=== PATIENT | female | born 1995 | race Caucasian/White ===

== ENCOUNTER 2017-06-09 04:47 | Emergency (ER) | payer OTHER, SELFPAY ==
[2017-06-09 04:51] VITALS: BP 116/72; PULSE 107; RESP 16; TEMP 36.6; O2SAT 100; BMI 26.1
--- NOTE | 2017-06-09 04:57 | RAD_ITS ---
STUDY: X-RAY CHEST REASON FOR EXAM: Female, 22 years old. Chest pain TECHNIQUE: Frontal and lateral views of the chest. COMPARISON: None. FINDINGS: The lungs are clear and expanded. There is no demonstrated pleural abnormality. Normal size heart. Normal mediastinum and kimberly. Normal visualized pulmonary arteries. Normal visualized aortic arch and descending thoracic aorta. There is a levoscoliosis of the thoracic spine. There is decreased height of the right side of vertebral body of T10 suggesting compression fracture of undetermined age. Normal visualized ribs, clavicles, and shoulders. There is no demonstrated abnormality of the visualized soft tissue structures of the upper abdomen. RAD/Chest PA and Lateral IMPRESSION: No acute chest disease. There is decreased height of the right side of vertebral body of T10 suggesting compression fracture of undetermined age. Electronically Signed: Erich Frost MD at 6:46 EDT Tel , Service support ,
--- NOTE | 2017-06-09 04:57 | EKG12_ITS ---
Test Reason : CP Blood Pressure : / mmHG Vent. Rate : 108 BPM Atrial Rate : 108 BPM P-R Int : 124 ms QRS Dur : 084 ms QT Int : 336 ms P-R-T Axes : 064 035 059 degrees QTc Int : 450 ms Sinus tachycardia Otherwise normal ECG Confirmed by TRUE PALM, NEGRITA ([id number]), sports editor KIERSTEN THACKER ([id number]) on 06/11/2017 3:10:42 PM Referred By: HILDA Confirmed By:NEGRITA BISWAS MD
--- NOTE | 2017-06-09 04:59 | ED.VISSUMM ---
- ER Visit Summary Date of Service: 06/09/17 Chief Complaint: Aching chest pain History of Present Illness: The patient is a 22 F currently at 22 weeks. Due date is 10/10/2017. Patient had no problems with the . She has never had a DVT or PE. She denies any leg pain or swelling. She has had no recent travel, surgery or mobilization. She denies any hemoptysis. She denies any shortness of breath. Patient states that Saturday at 2:45 AM she had chest aching discomfort that got worse tonight. No falls or trauma. She denies shortness of breath or abdominal pain. No vaginal bleeding. Prior episode that was secondary to anxiety. There is no pleuritic component of the pain. He is not change with movement or breathing. It does not radiate to her jaw. Physical Examination: Well appearing young female. Vital signs are stable and afebrile. Her pulse ox is 100% on room air no signs of hypoxia. Her blood pressure is 116/72. HEENT exam is unremarkable. Neck nontender no lymphadenopathy. Lungs clear to auscultation bilaterally. Heart regular rhythm rate about 107 no murmur. Chest wall nontender. No ecchymosis or bruising. No subcu air. No signs of trauma. Abdomen soft nontender normal bowel sounds no peritoneal signs. Gravid uterus. Nontender. Moving all 4 extremities. Neurovascular intact. Calves are nontender without edema or cords. Equal symmetrical radial pulses. 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 Back exam is nontender. Neurologically she is awake and alert without focal motor deficits. Test Results: EKG is a sinus rhythm rate of 108 with no acute signs of NH or ischemia. No signs of a PE. Chest x-ray two-view with the shielded abdomen shows no acute abnormality. Normal cardiac silhouette and mediastinum. No pneumothorax. Normal aortic knob. Emergency Department Course and Treatment: Repeat exam patient is doing well at 05 23. Ambulate in the hallway as long as she does not desat occurred with her being discharged. Clinically this does not sound to be a pulmonary embolus. There is no pleuritic nature. She is not short of breath. Her pulse ox is 100% on room air. Her EKG is unremarkable as is her chest x-ray there is no signs of dissection. Clinically this does not sound to be pericarditis either. Treatment Plan: Tylenol for pain. 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 It may contain incorrect words, spelling, and punctuation that were not noted in review of the chart prior to signing ED Disposition - Plan for ED Patient: Chief Complaint: Chest Pain Referrals: Butch Crowley MD [Primary Care Provider] -
--- NOTE | 2017-06-09 05:06 | ED.DCSUM_ITS ---
- ER Visit Summary Date of Service: 06/09/17 Chief Complaint: Aching chest pain History of Present Illness: The patient is a 22 F currently at 22 weeks. Due date is 10/10/2017. Patient had no problems with the . She has never had a DVT or PE. She denies any leg pain or swelling. She has had no recent travel, surgery or mobilization. She denies any hemoptysis. She denies any shortness of breath. Patient states that Saturday at 2:45 AM she had chest aching discomfort that got worse tonight. No falls or trauma. She denies shortness of breath or abdominal pain. No vaginal bleeding. Prior episode that was secondary to anxiety. There is no pleuritic component of the pain. He is not change with movement or breathing. It does not radiate to her jaw. Physical Examination: Well appearing young female. Vital signs are stable and afebrile. Her pulse ox is 100% on room air no signs of hypoxia. Her blood pressure is 116/72. HEENT exam is unremarkable. Neck nontender no lymphadenopathy. Lungs clear to auscultation bilaterally. Heart regular rhythm rate about 107 no murmur. Chest wall nontender. No ecchymosis or bruising. No subcu air. No signs of trauma. Abdomen soft nontender normal bowel sounds no peritoneal signs. Gravid uterus. Nontender. Moving all 4 extremities. Neurovascular intact. Calves are nontender without edema or cords. Equal symmetrical radial pulses. 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 Back exam is nontender. Neurologically she is awake and alert without focal motor deficits. Test Results: EKG is a sinus rhythm rate of 108 with no acute signs of MD or ischemia. No signs of a PE. Chest x-ray two-view with the shielded abdomen shows no acute abnormality. Normal cardiac silhouette and mediastinum. No pneumothorax. Normal aortic knob. Emergency Department Course and Treatment: Repeat exam patient is doing well at 05 23. Ambulate in the hallway as long as she does not desat occurred with her being discharged. Clinically this does not sound to be a pulmonary embolus. There is no pleuritic nature. She is not short of breath. Her pulse ox is 100 % on room air. Her EKG is unremarkable as is her chest x-ray there is no signs of dissection. Clinically this does not sound to be pericarditis either. Treatment Plan: Tylenol for pain. 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 It may contain incorrect words, spelling, and punctuation that were not noted in review of the chart prior to signing ED Disposition - Plan for ED Patient: Chief Complaint: Chest Pain Referrals: Butch Crowley MD [Primary Care Provider] -
--- NOTE | 2017-06-09 05:25 | ED.DEP ---
ED Disposition - Plan for ED Patient: Disposition: Home or Assisted Living Chief Complaint: Chest Pain Instructions: ED Chest Pain Atypical Unkn Cause Referrals: Evon Arreola [STAFF PHYSICIAN] - 3-5 Days if not improving Additional Instructions: Tylenol for pain. Call and follow-up with your ROPEWALK ROPE MAKER physician. Return if increasing pain, shortness of breath or coughing up blood.
[2017-06-09 05:39] VITALS: O2SAT 99
[2017-06-09 05:41] VITALS: RESP 14
== END 2017-06-09 05:41 | disposition home or self-care (01) ==
PROVIDERS: Emergency Provider Emergency Medicine; Family Provider Pediatrics; PCP Pediatrics
DX: O26.892 Other specified pregnancy related conditions, second trimester (principal); R07.9 Chest pain, unspecified; Z3A.22 22 weeks gestation of pregnancy
CPT/HCPCS: 71046; 93005; 99282

== ENCOUNTER 2017-08-20 19:45 | Outpatient (CLI) | payer OTHER, SELFPAY ==
[2017-08-20 20:16] VITALS: BMI 27.1
[2017-08-20 20:59] LABS: ROM Internal Control Test YES-OK TO RESULT pt. (Internal QC); ROM Patient Test Negative (Negative)
[2017-08-20 21:01] LABS: Fetal Fibronectin Negative
--- NOTE | 2017-08-20 21:25 | OB.TRI.NOTE ---
History of Present Illness Date of Service: 08/20/17 Was patient seen by the physician?: Yes Reason For Visit: CRAMPING AND BLEEDING Home Medications Medication Instructions Recorded Vit Calc,Iron,Folic 1 each PO DAILY 06/09/17 [ Vitamins] Magnesium 200 mg PO DAILY 08/20/17 Allergies latex Allergy (Verified 06/09/17 04:51) Rash NST - FHR Rate Baby A Baseline: 125 Variability:: Moderate Accelerations:: 15 x 15 Decelerations:: None NST Reactive:: Yes Uterine Activity:: occ ctx Impression/Plan Reactive NST for threatened PTL ROM & FFN negative
== END 2017-08-20 21:45 | disposition home or self-care (01) ==
LOC: WPOUT 20:14 → WP 20:15
PROVIDERS: Family Provider Pediatrics; PCP Pediatrics; Visit Provider Obstetrics & Gynecology
DX: O60.00 Preterm labor without delivery, unspecified trimester (principal); Z3A.00 Weeks of gestation of pregnancy not specified
CPT/HCPCS: 59025; 59050; 82731; 84112; 99218; G0378

== ENCOUNTER 2017-09-13 12:05 | Outpatient (CLI) | payer OTHER, SELFPAY ==
[2017-09-13 12:35] VITALS: BMI 27.6
[2017-09-13 13:02] LABS: ROM Internal Control Test YES-OK TO RESULT pt. (Internal QC); ROM Patient Test Negative (Negative)
--- NOTE | 2017-09-13 18:55 | OB.TRI.NOTE ---
History of Present Illness Date of Service: 09/13/17 Was patient seen by the physician?: No Reason For Visit: R/O ROM, Decreased FM Date of Service: 09/13/17 Final TOÑO: 10/10/17 Gestational age: 36 Weeks and 1 Days History of Present Illness: Patient reports increased wetness after using bathroom. Patient concerned that bag of alvarado may have broken. Patient also reports a change in the baby's movements. Patient usually feels constant movement and big extensions; currently patient is only feeling flutters. Allergies latex Allergy (Verified 06/09/17 04:51) Rash Physical Exam Vitals: See nursing note for vital signs and assessment - patient was normotensive, afebrile. Physical assessment by nursing staff unremarkable. ROM plus negative. NST - FHR Rate Baby A Baseline: 140 Variability:: Moderate Accelerations:: 15 x 15 Decelerations:: None NST Reactive:: Yes, Appropriate for gestational age FHR Category:: Category I Uterine Activity:: Uterine irritability noted on tocometer, not palpable or noticeable to patient. Impression/Plan 22 y/o @ 36.1wks, Category I FHT, PTL and PPROM - ruled out P: 1) Discharge patient to home 2) [facility] teaching and PTL precautions reviewed 3) Patient to keep pending appt. on 09/17/17 for mady HIDALGO
--- NOTE | 2017-09-13 19:00 | OB.TRI.HP_ITS ---
History of Present Illness Date of Service: 09/13/17 Was patient seen by the physician?: No Reason For Visit: R/O ROM, Decreased FM Date of Service: 09/13/17 Final TOÑO: 10/10/17 Gestational age: 36 Weeks and 1 Days History of Present Illness: Patient reports increased wetness after using bathroom. Patient concerned that bag of alvarado may have broken. Patient also reports a change in the baby's movements. Patient usually feels constant movement and big extensions; currently patient is only feeling flutters. Allergies latex Allergy (Verified 06/09/17 04:51) Rash Physical Exam Vitals: See nursing note for vital signs and assessment - patient was normotensive, afebrile. Physical assessment by nursing staff unremarkable. ROM plus negative. NST - FHR Rate Baby A Baseline: 140 Variability:: Moderate Accelerations:: 15 x 15 Decelerations:: None NST Reactive:: Yes, Appropriate for gestational age FHR Category:: Category I Uterine Activity:: Uterine irritability noted on tocometer, not palpable or noticeable to patient. Impression/Plan 22 y/o @ 36.1wks, Category I FHT, PTL and PPROM - ruled out P: 1) Discharge patient to home 2) [facility] teaching and PTL precautions reviewed 3) Patient to keep pending appt. on 09/17/17 for mady HIDALGO
== END 2017-09-13 14:10 | disposition home or self-care (01) ==
LOC: WPOUT 12:11 → WP 12:11
PROVIDERS: Family Provider Pediatrics; PCP Pediatrics; Visit Provider Advanced Practice Midwife
DX: Z34.03 Encounter for supervision of normal first pregnancy, third trimester (principal); Z91.040 Latex allergy status
CPT/HCPCS: 59025; 59050; 84112; 99218; G0378

== ENCOUNTER 2017-10-06 05:54 | Inpatient (IN) | payer OTHER, SELFPAY ==
[2017-10-06 05:26] VITALS: BMI 28.5
[2017-10-06 05:49] LABS: ROM Internal Control Test YES-OK TO RESULT pt. (Internal QC)
[2017-10-06 05:50] LABS: ROM Patient Test POSITIVE (Negative)
[2017-10-06 07:27] LABS: Hemoglobin 11.9 g/dl (12.0-15.0); Mean Corp Hgb Conc 33.1 g/gl (32-36); Mean Corpuscular Hgb 29.6 pg (27.0-32.0); Mean Corpuscular Volume 89.6 fL (81-99); Mean Platelet Vol. 9.8 fl (6.2-12.0); Platelet Count 206 K/mm3 (150-450); RBC Distribution Width CV 13.3 % (11.6-14.6); RBC Distribution Width SD 43.2 fl (35.1-43.9); Red Blood Count 4.02 M/mm3 (4.2-5.4); White Blood Count 8.3 K/mm3 (4.4-11.0)
[2017-10-06 07:29] LABS: Scan Indicated on CBC? Y/N NO
[2017-10-06] MEDS: Oxytocin 30 units/NS 500 ml 30 UNITS/500 ML IV.SOLN IV (08:05)
[2017-10-06] MEDS: Lactated Ringers 1,000 ML 50 ML IV ×4 (08:25→19:41)
--- NOTE | 2017-10-06 11:15 | PCM.HP.OB ---
History Date of Admission: 10/06/17 Final TOÑO: 10/10/17 Final TOÑO Source: US <20 weeks Gestational age: 39 Weeks and 3 Days History of this : This is a 22 year-old, 1 para 0 at 39-3/7 weeks gestation with EDC of 10/10/2017 by first trimester ultrasound alone who presents complaining of spontaneous rupture of membranes. She awoke this morning approximately 3:15 AM and noticed spontaneous rupture of membranes. She had no regular contractions at that time. No gross vaginal bleeding. Her has been uncomplicated to date and she arrived in labor and delivery where she was found to have gross spontaneous rupture of membranes. Allergies latex Allergy (Verified 06/09/17 04:51) Rash Home Medications: Home Medications Vit Calc,Iron,Folic [ Vitamins] 1 each PO DAILY 06/09/17 Magnesium 200 mg PO DAILY 08/20/17 Smoking Status: Never smoker Alcohol: None Number of Fetus(es): 1 Heart Tracing: Normal baseline, moderate variability, spontaneous accelerations and no significant decelerations. Category 1. TOCO Analysis: Irregular contractions History Past Pregnancies: Past Pregnancies Delivery Date Name GA/Weeks Outcome Route Weight Infant Gender Labor Length Anesthesia Delivery Location Provider FOB Expected Delivery Method: Spontaneous Vaginal Review of Systems Constitutional: Denies: Chills, Fever, Night Sweats Cardiovascular: Denies: Chest Pain Respiratory: Denies: Cough, Shortness of Breath Skin: Reports: Rash - Mild rash over the last few weeks of that is raised, sparse, and on her abdomen slightly pruritic Physical Exam General: Alert, Cooperative, No apparent distress Cardiovascular: Regular rate Lungs: Normal air movement Abdomen: Soft, Non-Distended, Gravid, Appropriate for Gestational Age Extremities:: Other - 1+ edema Assessment/Plan This is a 22 year-old, 1 para 0 at 39-3/7 weeks gestation with spontaneous rupture of membranes before onset of labor. Premature rupture of membranes at term. Estimated weight is less than 4500 g and pelvis is clinically adequate to expect vaginal delivery. Will induce labor with Pitocin. May have epidural, nitrous oxide, or Nubain as needed for pain control
[2017-10-06] MEDS: Oxytocin 30 units/NS 500 ml 30 UNITS/500 ML IV.SOLN 334 UNITS IV (19:14)
[2017-10-06] MEDS: Methylergonovine 0.2 MG/ML Ampul IM (19:30)
[2017-10-06] MEDS: Oxytocin 30 units/NS 500 ml 30 UNITS/500 ML IV.SOLN 167 UNITS IV (19:45)
--- NOTE | 2017-10-06 20:06 | PCM.OB.VAG ---
Vaginal Delivery Maternal Presentation: Spontaneous Rupture of Membranes Method of Induction: Pitocin Amniotic Membrane Rupture Type: Spontaneous at home Amniotic Fluid Description: Clear Final TOÑO: 10/10/17 Gestational age: 39 Weeks and 3 Days Date of Procedure: 10/06/17 Pre-Operative Diagnosis: SROM Post-Operative Diagnosis: SROM Surgery/ Procedure Performed: Spontaneous Vaginal Delivery Type of Anesthesia: Epidural Description of Procedure: Called to room when patient c/c/+3. She was prepped & draped. She pushed to deliver head. The shoulders &body easily followed. placed on maternal abdomen. 3vc clamped & cut in delayed fashion. Placenta delivered with gentle traction. Good uterine tone obtained - see medications. Presentation: JAN Placental Delivery Description: Expressed Placenta Disposition: [facility] Cord Vessel Description: 3 Vessels Cord Entanglement: None Estimated Blood Loss: 500ml Infant A gender: Female (1 minute): 8 (5 minute): 9 Episiotomy Description: None Laceration: 2nd degree - perineal - repaired with 3-0 vicryl Medications given after delivery: IV Pitocin, IM Methergin - and rectal cytotec
[2017-10-06] MEDS: miSOPROStol 200 MCG Tablet 1000 MCG RECTAL (21:18)
[2017-10-06] MEDS: Acetaminophen 500 MG Tablet 1000 MG PO (23:57)
[2017-10-07] VITALS: BP 121/77; PULSE 88; RESP 16; TEMP 36.8
--- NOTE | 2017-10-07 02:00 | NURSING ---
Taking over pt care at this time.
[2017-10-07 05:00] VITALS: BP 108/67; PULSE 99; RESP 18; TEMP 36.6; O2SAT 97
[2017-10-07 05:40] LABS: Hematocrit 31.5 % (37-47); Hemoglobin 10.4 g/dl (12.0-15.0); Mean Corpuscular Volume 90.8 fL (81-99); Mean Platelet Vol. 9.5 fl (6.2-12.0); Platelet Count 217 K/mm3 (150-450); RBC Distribution Width CV 13.2 % (11.6-14.6); RBC Distribution Width SD 42.1 fl (35.1-43.9); Red Blood Count 3.47 M/mm3 (4.2-5.4); White Blood Count 16.2 K/mm3 (4.4-11.0)
[2017-10-07 05:43] LABS: Scan Indicated on CBC? Y/N NO
--- NOTE | 2017-10-07 07:00 | NURSING ---
Pt missed hat with second void. Bladder feels fully emptied per pt report.
--- NOTE | 2017-10-07 07:00 | NURSING ---
Patients left foot remains numb, able to pivot to wheelchair with x1 assist to get to bathroom. Able to wiggle toes and lift lt leg. Oncoming RN made aware of numbness. Pt instructed to call when getting up.
[2017-10-07 08:00] VITALS: BP 115/74; PULSE 102; RESP 20; TEMP 36.8
[2017-10-07] MEDS: Acetaminophen 500 MG Tablet 1000 MG PO ×2 (08:01→19:41)
[2017-10-07] MEDS: Senna/Docusate Sodium 1 Tablet PO (08:01)
--- NOTE | 2017-10-07 09:02 | PCM.PN.OB ---
Subjective: Doing well per patient and nursing staff. Taking PO without difficulty. Voiding without difficulty. Left leg with numbness and tingling from midcalf down to foot, having difficulty applying weight during ambulation. Needing assistance with ambulation. Denies headache, visual changes, chest pain, increased vaginal bleeding or clots. , getting assistance from . Planning D/C home tomorrow. - Physical Exam General: Alert, Oriented x3, Cooperative Lungs: Clear to auscultation, Normal air movement, No rhonchi, No wheeze Cardiovascular: Regular rate, Regular Rhythm, No murmurs Abdomen: Bowel Sounds Present, Soft, Non Tender, - - Fundus firm 2 below U Extremities: No edema, No Calf Tenderness, - - Left leg with decreased strength, +4/5. Able to move left foot and leg but with decreased range of motion. Neurological: Deep Tendon Reflexes 2+/4 and Symmetrical, - - No clonus Psych/Mental Status: Normal Affect, Appropriate Vital Signs Temp Pulse Resp BP Pulse Ox 97.8 F 99 18 108/67 97 10/07/17 05:00 10/07/17 05:00 10/07/17 05:00 10/07/17 05:00 10/07/17 05:00 Oxygen Delivery Method Room Air Weight: 177 lb Body Mass Index (BMI) 28.5 Intake and Output for Last 24 Hours 10/05/17 10/06/17 10/07/17 23:59 23:59 23:59 Intake Total 273 / 273 Output Total 800 / 800 400 / 400 Balance -527 / -527 -400 / -400 Laboratory Tests Past 24 Hrs 10/07/17 05:20 WBC 16.2 H RBC 3.47 L Hgb 10.4 L Hct 31.5 L MCV 90.8 MCH 30.0 MCHC 33.0 RDW 13.2 RDW Differential 42.1 Plt Count 217 MPV 9.5 Medical Necessity - Tobacco Use Smoking Status: Never smoker Assessment/Plan A: PPD #1 P: 1) Routine care 2) Consult anesthesia and PT for left lower extremity weakness/numbness. Reviewed with patient probable transient but will consult for evaluation. 3) Planning D/C home tomorrow.
--- NOTE | 2017-10-07 09:12 | PN.OBGYN_ITS ---
Subjective: Doing well per patient and nursing staff. Taking PO without difficulty. Voiding without difficulty. Left leg with numbness and tingling from midcalf down to foot, having difficulty applying weight during ambulation. Needing assistance with ambulation. Denies headache, visual changes, chest pain, increased vaginal bleeding or clots. , getting assistance from . Planning D/ C home tomorrow. - Physical Exam General: Alert, Oriented x3, Cooperative Lungs: Clear to auscultation, Normal air movement, No rhonchi, No wheeze Cardiovascular: Regular rate, Regular Rhythm, No murmurs Abdomen: Bowel Sounds Present, Soft, Non Tender, - - Fundus firm 2 below U Extremities: No edema, No Calf Tenderness, - - Left leg with decreased strength , +4/5. Able to move left foot and leg but with decreased range of motion. Neurological: Deep Tendon Reflexes 2+/4 and Symmetrical, - - No clonus Psych/Mental Status: Normal Affect, Appropriate Vital Signs Temp Pulse Resp BP Pulse Ox 97.8 F 99 18 108/67 97 10/07/17 05:00 10/07/17 05:00 10/07/17 05:00 10/07/17 05:00 10/07/17 05:00 Oxygen Delivery Method Room Air Weight: 177 lb Body Mass Index (BMI) 28.5 Intake and Output for Last 24 Hours 10/05/17 10/06/17 10/07/17 23:59 23:59 23:59 Intake Total 273 / 273 Output Total 800 / 800 400 / 400 Balance -527 / -527 -400 / -400 Laboratory Tests Past 24 Hrs 10/07/17 05:20 WBC 16.2 H RBC 3.47 L Hgb 10.4 L Hct 31.5 L MCV 90.8 MCH 30.0 MCHC 33.0 RDW 13.2 RDW Differential 42.1 Plt Count 217 MPV 9.5 Medical Necessity - Tobacco Use Smoking Status: Never smoker Assessment/Plan A: PPD #1 P: 1) Routine care 2) Consult anesthesia and PT for left lower extremity weakness/numbness. Reviewed with patient probable transient but will consult for evaluation. 3) Planning D/C home tomorrow.
[2017-10-07 13:00] VITALS: BP 108/70; PULSE 111; RESP 20; TEMP 36.8
[2017-10-07 16:00] VITALS: BP 111/75; PULSE 119; RESP 16; TEMP 36.6
--- NOTE | 2017-10-07 16:00 | NURSING ---
1600 -Evaluated by physical therapy. numbness left mid-calf and foot. Able to flex toes. Able to walk with one assist. States numbness lessens when walking but increases when she sits again. PT plans to re-evaluate in the morning if Janki remains an inpatient.
--- NOTE | 2017-10-07 16:37 | NURSING ---
Dr. Posadas visited and PT consult ordered at 1300.
[2017-10-07 19:40] VITALS: BP 105/72; PULSE 120; RESP 19; TEMP 36.8
[2017-10-08 01:35] VITALS: BP 119/71; PULSE 102; RESP 18; TEMP 37
--- NOTE | 2017-10-08 07:49 | PCM.PN.OB ---
Subjective: Doing well per patient and nursing staff. Ambulating better this am, able to get out of bed to bathroom without difficulty. Has feeling and strength back in left leg. Evaluated by PT yesterday. Voiding and passing flatus. without difficulty. Planning D/C home today. - Physical Exam General: Alert, Oriented x3, Cooperative HEENT: Atraumatic, Normocephalic Lungs: Clear to auscultation, Normal air movement, No rhonchi, No wheeze Cardiovascular: Regular rate, Regular Rhythm, No murmurs Abdomen: Bowel Sounds Present, Soft, Non Tender, - - Fundus firm 2 below U Extremities: No edema Neurological: Deep Tendon Reflexes 2+/4 and Symmetrical Psych/Mental Status: Normal Affect, Appropriate Vital Signs Temp Pulse Resp BP Pulse Ox 98.6 F 102 H 18 119/71 97 10/08/17 01:35 10/08/17 01:35 10/08/17 01:35 10/08/17 01:35 10/07/17 05:00 Oxygen Delivery Method Room Air Weight: 177 lb Body Mass Index (BMI) 28.5 Intake and Output for Last 24 Hours 10/06/17 10/07/17 10/08/17 23:59 23:59 23:59 Intake Total 273 / 273 Output Total 800 / 800 400 / 400 Balance -527 / -527 -400 / -400 Medical Necessity - Tobacco Use Smoking Status: Never smoker Assessment/Plan A: PPD #2 P: 1) Discharge and instructions given. D/C home today 2) Follow up in 6 weeks.
--- NOTE | 2017-10-08 07:57 | DCINST_ITS ---
Discharge Diet: No Restrictions Discharge Activity: Return to Normal Activity, May not drive while taking narcotic pain medications., May Shower May resume sexual activity in: 4-6 weeks Weight Bearing Status: Weight bearing as tolerated Call your doctor if your incision/area has: Continuous Slow Oozing, Sudden Increased Bleeding, Increased Pain/ Swelling, Increased Redness, Foul Smelling Discharge Call your doctor if you observe: Fever of 101 or Higher, Numbness or Tingling, Inability to urinate, Inability to have a bowel movement, Using more than one pad per hour, Shortness of breath, Increased palpitations (irregular heartbeat) , Calf discomfort, Uncontrolled pain Additional Instructions: If you experience any of the following, contact your healthcare provider. * Bleeding that soaks a pad every hour for 2 hours * Fever 100.4 or higher * Unrelieved incision or abdominal pain * Swelling, redness, discharge or bleeding from your incision or episiotomy site * Your incision begins to separate * Problems urinating (including inability to urinate or burning while urinating) . * Visual changes * Severe headache * Flu-like symptoms * Pain or redness in one of both of your breasts * Pain, warmth, tenderness or swelling in your legs, especially the calf area * Frequent nausea and vomiting * Symptoms of depression or anxiety If you experience any of the following, call 911 or go to the nearest Emergency Room. * Chest pain * Problems breathing * Seizure activity * Partial or complete paralysis of a body part, slurred speech, weakness or drooping of the face, or a sudden inability to walk or hold your balance Allergies/Adverse Reactions: Allergies latex Allergy (Verified 06/09/17 04:51) Rash Medications to take at Discharge Vit Calc,Iron,Folic [ Vitamins] 1 each PO DAILY 06/09/17 Acetaminophen [Tylenol] 1,000 mg PO Q8H PRN PRN tablet 10/08/17 Please Follow Up With: Elizabeth Clark CNM When: Call to make an appointment with your doctor in 6 weeks. If you had elevated Blood Pressure or 4th degree laceration you will need to be seen in 2 weeks. Primary Care Physician: Butch Crowley MD [Primary Care Provider] - Test Results: Test results from this visit will be discussed in further detail at your follow- up appointment, if applicable.
[2017-10-08 09:15] VITALS: BP 111/72; PULSE 98; RESP 16; TEMP 36.3
[2017-10-08] MEDS: Senna/Docusate Sodium 1 Tablet PO (11:24)
[2017-10-08 14:30] VITALS: BP 107/67; PULSE 103; RESP 16; TEMP 36.8; O2SAT 98
[2017-10-08 14:32] VITALS: BP 107/67; PULSE 103; RESP 16; TEMP 36.8; O2SAT 98
== END 2017-10-08 14:45 | disposition home or self-care (01) | DRG 775 ==
LOC: WPOUT 05:55
PROVIDERS: Obstetrics & Gynecology; Admitting Provider Obstetrics & Gynecology; Family Provider Pediatrics; PCP Pediatrics; Visit Provider Obstetrics & Gynecology
DX: O70.1 Second degree perineal laceration during delivery (principal); Z37.0 Single live birth; O42.92 Full-term premature rupture of membranes, unspecified as to length of time between rupture and onset of labor; Z3A.39 39 weeks gestation of pregnancy; Z91.040 Latex allergy status; M41.9 Scoliosis, unspecified
CPT/HCPCS: 59025; 59050; 84112; 85027; 86850; 86900; 97162; 99218; J7120; G0378

== ENCOUNTER 2017-10-09 16:05 | Outpatient (CLI) | payer OTHER, SELFPAY | END 2017-10-09 17:30 | disposition home or self-care (01) | LOC: WPOUT 16:07 → WP 16:08 | PROVIDERS: Family Provider Pediatrics; PCP Pediatrics; Visit Provider Obstetrics & Gynecology | DX: Z39.1 Encounter for care and examination of lactating mother (principal) | CPT/HCPCS: 96152 ==

== ENCOUNTER 2019-01-08 17:42 | Outpatient (CLI) | payer BC, SELFPAY ==
[2019-01-08 17:51] VITALS: BMI 25.3
[2019-01-08 18:33] LABS: ROM Internal Control Test YES-OK TO RESULT pt. (Internal QC); ROM Patient Test Negative (Negative); Record Kit Lot#, ROM+ J8255
--- NOTE | 2019-01-10 10:29 | OB.TRI.NOTE ---
History of Present Illness Date of Service: 01/08/19 Was patient seen by the physician?: No Reason For Visit: R/O RUPTURE Date of Service: 01/08/19 Final TOÑO: 04/29/19 Final TOÑO Source: US <20 weeks Gestational age: 24 Weeks and 3 Days Allergies latex Allergy (Verified 01/08/19 17:54) Rash Laboratory Studies: Laboratory Tests 01/08/19 Range/Units 17:45 Vag Amniotic Fld Detect Negative (Negative) NST - FHR Rate Baby A Baseline: 130 Variability:: Moderate Accelerations:: 10 x 10 Decelerations:: None NST Reactive:: Appropriate for gestational age, Non-Reactive FHR Category:: Category I Uterine Activity:: quiet Impression/Plan 23-year-old multigravida female at 24-1/7 weeks presents complaining of possible rupture membranes. No evidence of rupture membranes. She was discharged home with routine follow-up in the office, or return as needed.
== END 2019-01-08 18:40 | disposition home or self-care (01) ==
LOC: WPOUT 17:43 → WP 17:44
PROVIDERS: Family Provider Pediatrics; PCP Pediatrics; Referring Provider Obstetrics & Gynecology; Visit Provider Obstetrics & Gynecology
DX: Z34.82 Encounter for supervision of other normal pregnancy, second trimester (principal); Z3A.24 24 weeks gestation of pregnancy; Z91.040 Latex allergy status
CPT/HCPCS: 59025; 59050; 84112; 99218; G0378

== ENCOUNTER 2019-03-02 18:51 | Outpatient (CLI) | payer BC, SELFPAY ==
[2019-03-02 18:50] VITALS: BP 99/62; PULSE 110; RESP 18; TEMP 36.9; O2SAT 99; BMI 27.2
[2019-03-02] MEDS: 0.9% Normal Saline 1,000 ML 1000 ML IV (19:17)
[2019-03-02 19:22] LABS: Absolute Lymphocyte Count 1.03 X10^3/uL (0.83-4.51); Absolute Neutrophil Count 9.4 X10^3/uL (2.0-7.7); Basophil# 0.02 X10^3/uL; Basophil% 0.2 % (0-1); Eosinophil# 0.01 X10^3/uL; Eosinophils% 0.1 % (0-5); Hematocrit 35.9 % (37-47); Hemoglobin 11.8 g/dL (12.0-15.0); Lymphocyte # 1.03 X10^3/ul (4.0); Lymphocyte % 9.3 % (19-41); Mean Corp Hgb Conc 32.9 g/dL (32-36); Mean Corpuscular Hgb 29.9 pg (27.0-32.0); Mean Corpuscular Volume 91.1 fL (81-99); Mean Platelet Vol. 9.1 fl (6.2-12.0); Monocyte# 0.59 X10^3/uL; Monocyte% 5.3 % (0-10); NRBC Flagged by Analyzer 0 % (0-5); Neutrophil # 9.36 X10^3/uL (2.7-7.7); Neutrophil % 84.7 % (47-70); Platelet Count 243 K/mm3 (150-450); RBC Distribution Width CV 12.6 % (11.6-14.6); RBC Distribution Width SD 41.6 fl (35.1-43.9); Red Blood Count 3.94 M/mm3 (4.2-5.4); White Blood Count 11.1 K/mm3 (4.4-11.0)
[2019-03-02 19:37] LABS: Bacteria 0 SEEN /hpf (None Seen); Mucous, Urine 0 SEEN /hpf (<or=2+); Red Blood Cells-Urine 0 SEEN /hpf (0-5); White Blood Cells 0 SEEN /hpf (0-5)
[2019-03-02 19:54] LABS: Anion Gap 7 (5-15); BUN 8 mg/dL (7-18); BUN/Creat Ratio 16.5 RATIO (10-20); Calcium,Total 8.4 mg/dL (8.5-10.1); Chloride 107 mmol/L (98-107); Creatinine, Serum 0.48 mg/dL (0.55-1.02); EST Glomerular Filtration Rate 165 mL/min (>60); Est Glom Filt Rate - Afr Amer 200 mL/min (>60); Estimated Creatinine Clearance 167.72 ml/min; Glucose 78 mg/dL (74-106); Potassium 3.4 mmol/L (3.5-5.1); Sodium Level 138 mmol/L (136-145)
[2019-03-02 20:03] LABS: Color, Urine Yellow (Yellow); Glucose, Dipstick Normal (Normal); Ketone-Dipstick 50 mg/dl (Negative); Leukocyte Esterase-Dipstick Negative /ul (Negative); Nitrite-Dipstick Negative (Negative); Occult Blood-Urine Negative /ul (Negative); Protein-Dipstick Negative (Negative); Specific Gravity, Urine 1.005 (1.002-1.030); Urine Bilirubin Dipstick Negative (Negative); Urine Clarity Sl. Cloudy (Clear); Urine Urobilinogen Normal (Normal)
[2019-03-02 20:04] LABS: Squamous Epithelial Cells - UA 0-5 SEEN /hpf (5-10)
--- NOTE | 2019-03-02 20:10 | ED.DCSUM_ITS ---
- ER Visit Summary Date of Service: 03/02/19 Chief Complaint: [Lightheadedness and concern for dehydration] History of Present Illness: The patient is a 24 F [ Present to the emergency department with complaint of feeling lightheaded since around 4 PM. Patient complains of nausea. Patient states that she only drink coffee and has not been drinking much water throughout the day although she did eat lunch. Patient is at 32 weeks . She denies any significant abdominal pain although she is had some contractions that she thought maybe were [place] type contractions that radiate to her back. She denies any vaginal bleeding. She denies urinary symptoms. EMS did give patient some fluids and she on arrival she is feeling better. Patient otherwise has no medical history. She denies any chest pain or shortness of breath.] Physical Examination: [HEENT-PERRLA, EOMI. Cranial nerves II through XII grossly intact. TMs clear. Mucous membranes moist. No adenopathy. Cardiovascular-regular rate and rhythm without murmur or ectopy Lungs-clear to auscultation, chest wall stable without crepitus or subcu emphysema Abdomen-normoactive bowel sounds, soft, nontender, no rebound or rigidity, no peritoneal signs. Abdomen is gravid and fundus is approximately 12 cm above the umbilicus. Extremities-intact ?4, normal range of motion, normal pulses, atraumatic] Test Results: [ heart tones were 150. CBC with differential obtained showed a white count of 11.1, hemoglobin 11.8, hematocrit 36, platelets 243. Chemistries unremarkable. Urinalysis was unremarkable.] Emergency Department Course and Treatment: [I discussed case with Dr. Trujillo who asked me that I send patient to labor and delivery so they can rule out labor.] Treatment Plan: [She will be discharged to labor and delivery to rule out labor] Disposition: [Discharged] Impression: [Dizziness-etiology uncertain Contractions-rule out labor] This note was generated with [employer] dictation software. It may contain incorrect words, spelling, and punctuation that were not noted in review of the chart prior to signing ED Disposition - Plan for ED Patient: Referrals: Care Physician,No Primary [Primary Care Provider] -
--- NOTE | 2019-03-02 20:13 | ED.DEP ---
ED Disposition - Plan for ED Patient: Instructions: DIZZINESS, Unk Cause Referrals: Care Physician,No Primary [Primary Care Provider] - Additional Instructions: Go to labor and delivery
[2019-03-02 20:34] VITALS: BP 124/84; PULSE 110; RESP 17; O2SAT 97
--- NOTE | 2019-03-02 20:35 | ED.RN ---
18g in left ac left in per ob department. pt discharged for er and transported to ob via wheelchair.
[2019-03-02] MEDS: Lactated Ringers 500 ML IV.SOLN. IV (22:02)
[2019-03-02] MEDS: proMETHazine 25 MG/ML Syringe 12.5 MG IV (22:03)
[2019-03-02 22:56] LABS: Fetal Fibronectin Negative
--- NOTE | 2019-03-04 12:33 | OB.TRI.NOTE ---
History of Present Illness Date of Service: 03/02/19 Reason For Visit: DEHYDRATION, R/O LABOR Date of Service: 03/02/19 Final TOÑO Source: US <20 weeks Gestational age: 31.5 Allergies latex Allergy (Verified 03/02/19 21:28) Rash Laboratory Studies: Laboratory Tests 03/02/19 03/02/19 03/02/19 Range/Units Unknown 19:20 19:00 WBC (4.4-11.0) K/mm3 RBC (4.2-5.4) M/mm3 Hgb (12.0-15.0) g/dL Hct (37-47) % MCV (81-99) fL MCH (27.0-32.0) pg MCHC (32-36) g/dL RDW Std Deviation (35.1-43.9) fl RDW Coeff of Siri (11.6-14.6) % Plt Count (150-450) K/mm3 MPV (6.2-12.0) fl Immature Gran % (Auto) (0.0-0.9) % Neut % (Auto) (47-70) % Lymph % (Auto) (19-41) % Falls % (Auto) (0-10) % Eos % (Auto) (0-5) % Baso % (Auto) (0-1) % Absolute Neuts (auto) (2.0-7.7) X10^3/uL Absolute Lymphs (auto) (0.83-4.51) X10^3/uL Nucleated RBC % (0-5) % Sodium 138 (136-145) mmol/L Potassium 3.4 L (3.5-5.1) mmol/L Chloride 107 (98-107) mmol/L Carbon Dioxide 24.0 (21.0-32.0) mmol/L Anion Gap 7 (5-15) BUN 8 (7-18) mg/dL Creatinine 0.48 L (0.55-1.02) mg/dL Estim Creat Clear Calc 167.72 ml/min Est GFR (MDRD) Af Amer 200 (>60) mL/min Est GFR (MDRD) Non-Af 165 (>60) mL/min BUN/Creatinine Ratio 16.5 (10-20) RATIO Glucose 78 (74-106) mg/dL Calcium 8.4 L (8.5-10.1) mg/dL Urine Color Yellow (Yellow) Urine Clarity Sl. Cloudy (Clear) Urine pH 7.0 (5.0 - 8.0) Ur Specific [place] 1.005 (1.002-1.030) Urine Protein Negative (Negative) mg/dl Urine Glucose (UA) Normal (Normal) mg/dl Urine Ketones 50 H (Negative) mg/dl Urine Occult Blood Negative (Negative) /ul Urine Nitrite Negative (Negative) Urine Bilirubin Negative (Negative) mg/dL Urine Urobilinogen Normal (Normal) mg/dl Ur Leukocyte Esterase Negative (Negative) /ul Urine RBC 0 SEEN (0-5) /hpf Urine WBC 0 SEEN (0-5) /hpf Ur Squamous Epith Cells 0-5 SEEN (5-10) /hpf Urine Bacteria 0 SEEN (None Seen) /hpf Urine Mucus 0 SEEN (<or=2+) /hpf Fibronectin Negative 03/02/19 Range/Units 19:00 WBC 11.1 H (4.4-11.0) K/mm3 RBC 3.94 L (4.2-5.4) M/mm3 Hgb 11.8 L (12.0-15.0) g/dL Hct 35.9 L (37-47) % MCV 91.1 (81-99) fL MCH 29.9 (27.0-32.0) pg MCHC 32.9 (32-36) g/dL RDW Std Deviation 41.6 (35.1-43.9) fl RDW Coeff of Siri 12.6 (11.6-14.6) % Plt Count 243 (150-450) K/mm3 MPV 9.1 (6.2-12.0) fl Immature Gran % (Auto) 0.400 (0.0-0.9) % Neut % (Auto) 84.7 H (47-70) % Lymph % (Auto) 9.3 L (19-41) % Falls % (Auto) 5.3 (0-10) % Eos % (Auto) 0.1 (0-5) % Baso % (Auto) 0.2 (0-1) % Absolute Neuts (auto) 9.4 H (2.0-7.7) X10^3/uL Absolute Lymphs (auto) 1.03 (0.83-4.51) X10^3/uL Nucleated RBC % 0 (0-5) % Sodium (136-145) mmol/L Potassium (3.5-5.1) mmol/L Chloride (98-107) mmol/L Carbon Dioxide (21.0-32.0) mmol/L Anion Gap (5-15) BUN (7-18) mg/dL Creatinine (0.55-1.02) mg/dL Estim Creat Clear Calc ml/min Est GFR (MDRD) Af Amer (>60) mL/min Est GFR (MDRD) Non-Af (>60) mL/min BUN/Creatinine Ratio (10-20) RATIO Glucose (74-106) mg/dL Calcium (8.5-10.1) mg/dL Urine Color (Yellow) Urine Clarity (Clear) Urine pH (5.0 - 8.0) Ur Specific [place] (1.002-1.030) Urine Protein (Negative) mg/dl Urine Glucose (UA) (Normal) mg/dl Urine Ketones (Negative) mg/dl Urine Occult Blood (Negative) /ul Urine Nitrite (Negative) Urine Bilirubin (Negative) mg/dL Urine Urobilinogen (Normal) mg/dl Ur Leukocyte Esterase (Negative) /ul Urine RBC (0-5) /hpf Urine WBC (0-5) /hpf Ur Squamous Epith Cells (5-10) /hpf Urine Bacteria (None Seen) /hpf Urine Mucus (<or=2+) /hpf Fibronectin Physical Exam Vitals: Vital Signs Temp Pulse Resp BP Pulse Ox 98.4 F 110 H 17 124/84 H 97 03/02/19 18:50 03/02/19 20:34 03/02/19 20:34 03/02/19 20:34 03/02/19 20:34 NST - FHR Rate Baby A Baseline: 140 Variability:: Moderate Accelerations:: 15 x 15 Decelerations:: None NST Reactive:: Yes FHR Category:: Category I Uterine Activity:: irregular (after hydration) Impression/Plan 24yo @ 31.5 wks, false labor, dehydration 1) Diarrhea and vomiting- symptomatic relief 2) Not in labor cervix thick and closed 3) dc home
== END 2019-03-02 23:10 | disposition home or self-care (01) ==
LOC: ED 19:20 → WPOUT 20:54 → WP 20:55
PROVIDERS: Emergency Provider Emergency Medicine; Referring Provider Obstetrics & Gynecology; Visit Provider Obstetrics & Gynecology
DX: O26.893 Other specified pregnancy related conditions, third trimester (principal); E86.0 Dehydration; O21.2 Late vomiting of pregnancy; Z3A.31 31 weeks gestation of pregnancy; Z91.040 Latex allergy status; O99.283 Endocrine, nutritional and metabolic diseases complicating pregnancy, third trimester
CPT/HCPCS: 59025; 59050; 80048; 81001; 82731; 85025; 99218; 99285; J7030; J7120; A4216; G0378

== ENCOUNTER 2019-04-24 19:15 | Inpatient (IN) | payer BC, SELFPAY ==
[2019-04-24 19:49] VITALS: BMI 27.3
[2019-04-24] MEDS: 0.9% Saline Lock 10 ML Syringe IV (20:00)
[2019-04-24 20:31] LABS: Absolute Neutrophil Count 8.2 X10^3/uL (2.0-7.7); Basophil# 0.02 X10^3/uL; Basophil% 0.2 % (0-1); Eosinophil# 0.04 X10^3/uL; Eosinophils% 0.4 % (0-5); Hematocrit 37.5 % (37-47); Hemoglobin 11.9 g/dL (12.0-15.0); Lymphocyte % 19.9 % (19-41); Mean Corp Hgb Conc 31.7 g/dL (32-36); Mean Corpuscular Hgb 27.9 pg (27.0-32.0); Mean Corpuscular Volume 87.8 fL (81-99); Mean Platelet Vol. 10.1 fl (6.2-12.0); Monocyte# 0.58 X10^3/uL; Monocyte% 5.3 % (0-10); NRBC Flagged by Analyzer 0 % (0-5); Neutrophil # 8.17 X10^3/uL (2.7-7.7); Platelet Count 236 K/mm3 (150-450); RBC Distribution Width CV 13.8 % (11.6-14.6); RBC Distribution Width SD 43.7 fl (35.1-43.9); Red Blood Count 4.27 M/mm3 (4.2-5.4)
--- NOTE | 2019-04-24 23:20 | PCM.HP.OB ---
- Problem List (1) History of depression Status: Acute (2) Active labor at term Status: Acute (3) History of ulcerative colitis Status: Acute (4) Short interval between pregnancies affecting , antepartum Status: Acute (5) History of atony of uterus Status: Acute (6) Lumbar herniated disc Status: Acute History Date of Admission: 10/06/17 Final TOÑO: 04/29/19 Final TOÑO Source: US <20 weeks Gestational age: 39 Weeks and 2 Days History of this : This is a 24 year-old, G [2], P [1001], at 39 weeks 2 days gestational age by first trimester ultrasound. Presented for visit around 1pm today, membranes stripped. Patient returned home and started to have uterine contractions that became more regular with pelvic pressure. Presented to labor and delivery 6 cm dilated. Decision to admit for active labor. Allergies latex Allergy (Verified 04/24/19 20:53) Rash Home Medications: Home Medications Vit Calc,Iron,Folic [ Vitamins] 1 each PO DAILY 06/09/17 Smoking Status: Never smoker Alcohol: None Number of Fetus(es): 1 NST - FHR Rate Baby A Baseline: 125 Variability:: Moderate Accelerations:: 15 x 15 Decelerations:: None NST Reactive:: Yes FHR Category:: Category I Uterine Activity:: Every 4-6 minutes, strong History Past Pregnancies: Past Pregnancies Delivery Date Name GA/ Weeks Outcome Route Wt Sex Labor Length Anesthesia Delivery Location Provider FOB Labs: Mom's Problem List Problem Status Onset Code History of depression Acute Z86.59 Active labor at term Acute History of ulcerative colitis Acute Z87.19 Short interval between pregnancies affecting , antepartum Acute O09.899 History of atony of uterus Acute Z87.59 Lumbar herniated disc Acute M51.26 Mom's Labs & Results 04/24/19 04/24/19 20:00 20:00 WBC 11.0 RBC 4.27 Hgb 11.9 L Hct 37.5 MCV 87.8 MCH 27.9 MCHC 31.7 L RDW Std Deviation 43.7 RDW Coeff of Siri 13.8 Plt Count 236 MPV 10.1 Immature Gran % (Auto) 0.200 Neut % (Auto) 74.0 H Lymph % (Auto) 19.9 [place] % (Auto) 5.3 Eos % (Auto) 0.4 Baso % (Auto) 0.2 Absolute Neuts (auto) 8.2 H Absolute Lymphs (auto) 2.20 Nucleated RBC % 0 Blood Type O POSITIVE Antibody Screen NEGATIVE Course Did the patient receive Yes care? Labs Blood Type: O RH: POSITIVE RPR/VDRL/Syphilis Nonreactive Rubella status Immune HbSAg Negative Date Done: 10/14/18 Chlamydia Negative Gonorrhea Negative HIV/AIDS Non-Reactive Group B Strep: Negative Current Obstetrical History Gestational Diabetes No Incompetent Cervix No Infertility No IUGR No Macrosomia No Hypertension/Pre-eclampsia No Placenta Previa/Abruption No PTL/PROM No Uterine anomaly No Oligohydramnios No Polyhydramnios No Multiple gestation No Past Medical History Asthma No Diabetes No Hypertension No Heart disease No Mitral valve prolapse Yes: undiagnosed - pt mother has Neurologic/Seizure disorder/ No Migraines Kidney disease No Liver disease No Varicosities No Clotting disorders/Hx of DVT No Thyroid Dysfunction No Other medical diseases Yes: history depression - no meds Psychiatric disorders No Major trauma No Abnormal PAP smear Yes: during first but follow up was negative Sleep apnea No Mammogram in the last 2 years No Social History Marital Status: Alleged father Nick Sotelo Smoking No Smoking Status Never smoker Review of Systems Constitutional: Denies: Chills, Fever, Weight Change HEENT: Denies: Head Aches, Sinus Congestion, Sinus Drainage Cardiovascular: Denies: Chest Pain, Palpitations Respiratory: Denies: Cough, Shortness of breath at rest, Sputum production Gastrointestinal: Denies: Abdominal Pain, Nausea, Vomiting Genitourinary: Denies: Dysuria Neurological: Denies: Numbness, Tingling, Focal weakness Psychiatric: Denies: Anxiety, Depression, Homicidal Ideations, Suicidal Ideations Physical Exam General: Alert, Oriented x3, Cooperative HEENT: Atraumatic, Normocephalic Cardiovascular: Regular rate, Regular Rhythm, No murmurs Lungs: Clear to auscultation, Normal air movement, No rhonchi, No wheeze Abdomen: Gravid Extremities:: No edema Neurological: Deep Tendon Reflexes 2+/4 and Symmetrical. Negative for: Clonus [employer] SECURITY CONSULTANT: Normal external genitalia - vulvar varicosities Estimated gestational size: Appropriate for gestational size Presentation: Cephalic Cervix Dilation (cm): 6.5 - IBOW. AROM for moderate amount of clear fluid. Patient tolerated well. Station: -1 Effacement (%): 90 Assessment/Plan All Active Problems History of depression (Acute) Active labor at term (Acute) History of ulcerative colitis (Acute) Short interval between pregnancies affecting , antepartum (Acute) History of atony of uterus (Acute) Lumbar herniated disc (Acute) This is a 24 year-old, G [2], P [1001], at 39 weeks 2 days gestational age. Active Labor category 1 FHT P: 1) Admit to labor delivery. 2) IV saline lock 3) Routine admission labs 4) Warm water immersion, nitrous, or epidural upon request 5) notified of patient admission and status, collaborative physician. 6) Reviewed AROM or expectant management, agreed to AROM.
[2019-04-25] MEDS: Oxytocin 30 units/NS 500 ml 30 UNITS/500 ML IV.SOLN 334 UNITS IV (00:40)
--- NOTE | 2019-04-25 01:31 | PCM.OPRPT ---
Problem List (1) History of depression Status: Acute (2) Active labor at term Status: Acute (3) History of ulcerative colitis Status: Acute (4) Short interval between pregnancies affecting , antepartum Status: Acute (5) History of atony of uterus Status: Acute (6) Lumbar herniated disc Status: Acute (7) Vaginal delivery Status: Acute (8) Second degree perineal laceration Status: Acute Vaginal Delivery Maternal Presentation: Active Labor Amniotic Membrane Rupture Type: Artificial Amniotic Fluid Description: Clear Final TOÑO: 04/29/19 Gestational age: 39 Weeks and 3 Days Date of Procedure: 04/25/19 Pre-Operative Diagnosis: Active labor Post-Operative Diagnosis: Surgery/ Procedure Performed: Spontaneous Vaginal Delivery Type of Anesthesia: Local with 1% lidocaine Description of Procedure: Progressed to complete with strong urge to push and going unmedicated. of viable female over 2nd degree perineal laceration. APGARS 9,10. head delivered and body forthcoming, placed on maternal abdomen. Spontaneous cry, mouth and nares suctioned for secretions. Pitocin started for active 3rd stage management. Placenta delivered with maternal effort, intact, 3 vessel cord via slava. Perineum inspected and revealed 2nd degree perineal laceration. Repaired with lidocaine and 3.0 vicryl, well approximated and hemostasis achieved. Fundus firm with EBL 500ml, blood loss from perineal laceration and varicosities. Vaginal sweep completed. Sponge and instrument count correct. Family bonding well. Mom and baby stable, planning to breast feed. notified of patient delivery. Presentation: Vertex Placental Delivery Description: Spontaneous Placenta Disposition: [facility] Cord Vessel Description: 3 Vessels Cord Entanglement: Around neck x 1, loose Estimated Blood Loss: 500ml A gender: Female (1 minute): 9 (5 minute): 10 Episiotomy Description: None Laceration: Perineal Extension/lac, 2nd degree Medications given after delivery: IV Pitocin
[2019-04-25] MEDS: Lactated Ringers 1,000 ML 999 ML IV (02:01)
--- NOTE | 2019-04-25 04:37 | NURSING ---
this RN to assume care of pt at this time. report received from heidy RAMIRES.
[2019-04-25 05:00] VITALS: BP 110/59; PULSE 117; RESP 16; TEMP 36.8
[2019-04-25 05:49] LABS: Hematocrit 30.5 % (37-47); Hemoglobin 9.8 g/dL (12.0-15.0); Mean Corp Hgb Conc 32.1 g/dL (32-36); Mean Corpuscular Hgb 28.3 pg (27.0-32.0); Mean Corpuscular Volume 88.2 fL (81-99); Mean Platelet Vol. 10.1 fl (6.2-12.0); Platelet Count 229 K/mm3 (150-450); RBC Distribution Width CV 13.7 % (11.6-14.6); RBC Distribution Width SD 43.5 fl (35.1-43.9); Red Blood Count 3.46 M/mm3 (4.2-5.4); White Blood Count 16.1 K/mm3 (4.4-11.0)
[2019-04-25 08:12] VITALS: BP 103/64; PULSE 96; RESP 18; TEMP 36.9
[2019-04-25 12:00] VITALS: BP 116/70; PULSE 106; RESP 18; TEMP 36.9
[2019-04-25 16:00] VITALS: BP 127/69; PULSE 105; RESP 16; TEMP 36.8
[2019-04-25 19:30] VITALS: BP 107/65; PULSE 100; RESP 16; TEMP 36.9
[2019-04-26 01:45] VITALS: BP 108/57; PULSE 98; RESP 18; TEMP 36.6
[2019-04-26 08:12] VITALS: BP 113/66; PULSE 97; RESP 20; TEMP 36.2
--- NOTE | 2019-04-26 10:26 | PCM.PN.OB ---
Patient Problems: Active and Suspected Problems History of depression (Acute) Active labor at term (Acute) History of ulcerative colitis (Acute) Short interval between pregnancies affecting , antepartum (Acute) History of atony of uterus (Acute) Lumbar herniated disc (Acute) Vaginal delivery (Acute) Second degree perineal laceration (Acute) Subjective: Doing well per patient and nursing staff. Ambulating and taking PO without difficulty. , lip tie and some discomfort. Lochia normal. No headaches, visual changes, chest pain, shortness of breath, or leg pain. Planning D/C home today. - Physical Exam Vitals/I&O's: Vital Signs Temp Pulse Resp BP 97.1 F L 97 20 H 113/66 04/26/19 08:12 04/26/19 08:12 04/26/19 08:12 04/26/19 08:12 Oxygen Delivery Method Room Air Weight: 169 lb 2 oz Body Mass Index (BMI) 27.3 Intake and Output for Last 24 Hours 04/24/19 04/25/19 04/26/19 23:59 23:59 23:59 Intake Total 1500 / 1500 Output Total 1250 / 1250 Balance 250 / 250 General: Alert, Oriented x3, Cooperative HEENT: Atraumatic, Normocephalic Neck: Trachea Midline Lungs: Clear to auscultation, Normal air movement, No rhonchi, No wheeze Cardiovascular: Regular rate, Regular Rhythm, No murmurs Abdomen: Bowel Sounds Present, Soft, - - Fundus firm 3 below Extremities: No edema - Bryson's negative Psych/Mental Status: Normal Affect, Appropriate Current Medications Acetaminophen (Tylenol) 1,000 mg PO Q8H PRN PRN PRN Reason: Pain Score 1-3/10 Bisacodyl (Dulcolax) 10 mg RECTAL UD PRN PRN Reason: If no BM Dibucaine (Dibucaine) 1 applic TOPICAL TID PRN PRN; Protocol PRN Reason: Discomfort Hydrocortisone (Hytone) 1 applic TOPICAL TID PRN PRN; Protocol PRN Reason: Discomfort Ibuprofen (Motrin) 600 mg PO Q6H PRN PRN PRN Reason: Pain Score 1-3/10 Methylergonovine Maleate (Methergine) 0.2 mg IM X1 PRN PRN Reason: Excess bleeding/uterine atony Ondansetron HCl (Zofran) 4 mg IV Q4H PRN PRN PRN Reason: Nausea Senna/Docusate Sodium (Senokot-S, Eleonora-Colace) 1 - 2 tablet PO DAILY PRN PRN PRN Reason: Constipation Simethicone (Mylicon) 80 mg PO PCHS PRN PRN Reason: Indigestion/Stomach pain Sodium Chloride () 5 - 15 ml IV UD PRN PRN Reason: SALINE FLUSH Medical Necessity - Tobacco Use Smoking Status: Never smoker Assessment/Plan All Active Problems History of depression (Acute) Active labor at term (Acute) History of ulcerative colitis (Acute) Short interval between pregnancies affecting , antepartum (Acute) History of atony of uterus (Acute) Lumbar herniated disc (Acute) Vaginal delivery (Acute) Second degree perineal laceration (Acute) A:PPD #1 Acute blood loss anemia P: 1) Hgb 9.8, asymptomatic. Ferrous Sulfate 325mg PO BID 2) Pain controlled, OTC medication 3) with support, referral to ENT 4) Follow up in 2 weeks and 6 weeks
--- NOTE | 2019-04-26 10:37 | DCINST_ITS ---
Discharge Diet: No Restrictions Discharge Activity: Return to Normal Activity, May not drive while taking narcotic pain medications., May Shower May resume sexual activity in: 4-6 weeks Weight Bearing Status: Full weight bearing Additional Activity Instructions:: Nothing in the vagina for 4-6 weeks. You may return to work/school in 6 weeks. Call your doctor if your incision/area has: Continuous Slow Oozing, Sudden Increased Bleeding, Increased Pain/ Swelling, Increased Redness, Foul Smelling Discharge Call your doctor if you observe: Fever of 101 or Higher, Inability to urinate, Inability to have a bowel movement, Using more than one pad per hour, Shortness of breath, Chest pain, Increased palpitations (irregular heartbeat), Calf discomfort, Uncontrolled pain Instructions: After a Vaginal , at Home Additional Instructions: If you experience any of the following, contact your healthcare provider. * Bleeding that soaks a pad every hour for 2 hours * Fever 100.4 or higher * Unrelieved incision or abdominal pain * Swelling, redness, discharge or bleeding from your incision or episiotomy site * Your incision begins to separate * Problems urinating (including inability to urinate or burning while urinating). * Visual changes * Severe headache * Flu-like symptoms * Pain or redness in one of both of your breasts * Pain, warmth, tenderness or swelling in your legs, especially the calf area * Frequent nausea and vomiting * Symptoms of depression or anxiety If you experience any of the following, call 911 or go to the nearest Emergency Room. * Chest pain * Problems breathing * Seizure activity * Partial or complete paralysis of a body part, slurred speech, weakness or drooping of the face, or a sudden inability to walk or hold your balance Allergies/Adverse Reactions: Allergies latex Allergy (Verified 04/24/19 20:53) Rash Medications to take at Discharge Vit Calc,Iron,Folic [ Vitamins] 1 each PO DAILY 06/09/17 Please Follow Up With: Elizabeth Clark CNM When: Call to make an appointment with your doctor in 2 weeks and 6 weeks. If you had elevated Blood Pressure or 4th degree laceration you will need to be seen in 2 weeks. Primary Care Physician: Care Physician,No Primary [Primary Care Provider] - Test Results: Test results from this visit will be discussed in further detail at your follow- up appointment, if applicable.
[2019-04-26 14:30] VITALS: BP 111/63; PULSE 95; RESP 18; TEMP 36.7
== END 2019-04-26 14:20 | disposition home or self-care (01) | DRG 806 ==
PROVIDERS: Admitting Provider Advanced Practice Midwife; Visit Provider Advanced Practice Midwife
DX: O70.1 Second degree perineal laceration during delivery (principal); D62 Acute posthemorrhagic anemia; Z37.0 Single live birth; O90.81 Anemia of the puerperium; O69.81X0 Labor and delivery complicated by cord around neck, without compression, not applicable or unspecified; Z3A.39 39 weeks gestation of pregnancy
CPT/HCPCS: 59025; 59050; 85025; 85027; 86850; 86900; 86901; 99218; J7120; A4216; G0378

== ENCOUNTER 2020-03-01 07:55 | Day surgery (SDC) | payer BC, SELFPAY ==
--- NOTE | 2020-02-27 15:12 | HP.PCM_ITS ---
History and Physical Date of Admission: 03/01/20 HISTORY AND PHYSICAL ? Janki Hollingsworth 1995 ? ? REFERRING PHYSICIAN: Elizabeth Clark ([place]), A* ? CHIEF COMPLAINT: Consult (Consult Umbilical hernia) ? HPI: The patient is a 25 year old female presents with umbilical hernia that is symptomatic. She noted the hernia for about a year, during her . Her baby is 10 months old at present. She states that she has had episodes of incarceration but she was able to reduce the hernia. She denies chronic constipation, chronic urinary obstructive symptoms, chronic cough Denies fevers, weight loss. Denies previous hernias. ? ? PAST MEDICAL HISTORY ? Abnormal Pap smear of cervix ? ? LGSIL pap ? anxiety/depression ? ? Heart palpitations 02/23/2019 ? Irregular menses 10/29/2011 ? Lumbar herniated disc ? ? 2011 ? Ulcerative colitis (HCC) ? ? PAST SURGICAL HISTORY ? COLONOSCOP W/ OR W/O BRSH SPEC ? 04/21/14 ? Colonoscopy [place] teeth extraction ? ? Current Outpatient Medications ? OTC NUTRITIONAL SUPPLEMENT [place], Dietary Supplement, Pt takes 3 Capsules daily. ? MAGNESIUM OXIDE ORAL Take 100 mg by mouth twice daily. ? MEDICATION, NON-DATABASE Reliv Supplements ? [id number] ( VITAMIN) tab Take 1 tablet by mouth. ? ? ALLERGIES: Latex, Natural Rubber ? PERSONAL HISTORY: Social History Tobacco Use ? Smoking status: Never Smoker ? Smokeless tobacco: Never Used Substance Use Topics ? Alcohol use: No ? Drug use: No ? FAMILY HISTORY ? Heart Mother ? ? other (depression) Father ? ? No Known Problems Paternal Grandfather ? ? Breast Cancer Paternal Grandmother ? ? Heart Maternal Grandfather ? ? Cancer Maternal Grandfather ? ? melanoma ? Hypertension Maternal Grandmother ? ? Breast Cancer Maternal Grandmother ? ? Depression Maternal Grandmother ? ? Heart Brother ? ? right bundle branch ? Asthma Brother ? ? No Known Problems Daughter ? ? ? REVIEW OF SYSTEMS: General - denies fevers, denies anorexia, denies weight loss Cardiovascular - denies chest pain, denies history of [place] Pulmonary - denies shortness of breath, denies coughing up blood Gastrointestinal - denies abdominal pain, denies hematemesis, denies blood in stools Neurological - has headaches, denies seizures, denies chronic numbness/weakness of extremities Genitourinary - has had kidney stones, denies burning with urination, denies blood in urine Hematological - denies spontaneous/prolonged bleeding Skin - denies nonhealing skin wounds Musculoskeletal - no new muscle/bone pain Endocrine - denies diabetes, no thyroid problems Psychological ? denies hallucinations ? PHYSICAL EXAMINATION: General: The patient is 25 year old female, well nourished, well hydrated in no acute distress. The patient is oriented to time, place, and person. VITALS: Pulse 90, temperature 36.4 ?C (97.6 ?F), height 167.6 cm (5' 6), weight 66.5 kg (146 lb 9.6 oz), SpO2 100 %, currently . Body mass index is 23.66 kg/m?. Head ? Normocephalic. EOM intact with sclera clear and no icterus noted. Mouth with mucus membranes moist. Neck - supple with no jugular venous distention noted. Trachea is midline. Lungs ? clear to auscultation. Normal breath sounds. No rales/rhonchi/wheezing noted. No labored breathing noted, such as retractions. No cough heard. Heart ? normal S1 and S2 auscultated. No rubs/clicks/murmurs noted. Regular rate. Abdomen ? soft and benign. Umbilical hernia - reducible. Normal bowel sounds. No abdominal bruits noted. Extremities ? no calf tenderness noted. No pitting edema noted. Skin ? normal skin integrity. Neurological ? gait normal, no focal deficits noted. Psych ? calm and appropriate ? IMPRESSION: umbilical hernia - reducible ? PLAN: I have discussed the above with the patient. I have offered umbilical hernia repair I have explained the procedure to the patient. I have counseled the patient as to the risks of the procedure, including but not limited to: infection, bleeding, injury to any blood vessels/nerves, scar tissue, injury to any intrabdominal organs, injury to bowel/bladder, recurrence of hernia, wound infections, complications of anesthesia, etc. ? the patient understands. ? The patient was offered a surgery/procedure. The provider and patient have discussed in detail the risk of exposure to and/or potential harm posed by the COVID-19 virus with having a surgery/procedure at this time versus the risk of? delaying the surgery/procedure. It is not possible to know either the risk of delaying the surgery or procedure or chance of getting an infection with perfect accuracy, but a joint decision was made between the patient and the provider ?to proceed at this time with the scheduled surgery/procedure. ? The patient wishes to proceed. I have answered all questions to the patient?s satisfaction and the patient has no further questions. . Diagnoses: (K42.9) Umbilical hernia without obstruction or gangrene Return to Clinic: The patient is instructed to follow-up with me after the procedure. ? ? Nannette Dougherty MD
[2020-03-01 08:14] LABS: Internal QC Validated? YES +Cl - CLEAR BKGD
[2020-03-01 08:17] LABS: Pregnancy, Urine Negative Negative
[2020-03-01 08:27] VITALS: BP 112/79; PULSE 104; RESP 14; TEMP 36.8; O2SAT 100; BMI 23.1
[2020-03-01] MEDS: Bupiv/Epi 0.25% 30 ML Vial (09:28)
[2020-03-01] MEDS: Cefazolin 2 GM in 0.9% Normal Saline 100 ML IV (09:28)
--- NOTE | 2020-03-01 09:28 | PCM.DC.HER ---
Discharge Diet: No Restrictions Discharge Activity: Return to Normal Activity, May not drive while taking narcotic pain medications. Lifting Restrictions: no lifting greater than 20 pounds for 4-6 weeks Call your doctor if your incision/area has: Continuous Slow Oozing, Foul Smelling Discharge Call your doctor if you observe: Fever of 101 or Higher Additional Instructions: Recommended pain control regimen - May take 600 mg ibuprofen (Motrin) and then in 3-4 hours, may take 650 mg acetaminophen (Tylenol), then in 3-4 hours may take 600 mg ibuprofen, then in 3-4 hours may take 650 mg acetaminophen and so on for 2-3 days May take narcotic pain medication for pain that is not controlled by above and at night for comfort through the night Leave dressings in place May get dressings wet in shower - do not scrub in the area and pat dry For hernia surgery - Swelling and bruising will occur in the area of the incision Allergies/Adverse Reactions: Allergies latex Allergy (Verified 02/29/20 10:16) Rash Medications to take at Discharge Reliv 1 dose PO DAILY 02/29/20 Hydrocodone Bitart/Apap 5-325 [Sacred Heart 5MG-325MG] 1 tab PO Q8H PRN PRN 5 Days #15 tab 03/01/20 The following prescriptions were given: Hydrocodone Bitart/Apap 5-325 [Sacred Heart 5MG-325MG] 1 tab PO Q8H PRN PRN 5 Days #15 tab PRN Reason: Pain Transmission Status: Received by [facility] Primary Care Physician: Care Physician,No Primary [Primary Care Provider] - Test Results: Test results from this visit will be discussed in further detail at your follow-up appointment, if applicable. Please Follow Up With: Nannette Dougherty MD - call When: to see me in 1-2 weeks, please call for date and time, thank you
--- NOTE | 2020-03-01 09:30 | OP.PCM_ITS ---
Report of Operation Date of Procedure: 03/01/20 Pre-Operative Diagnosis: umbilical hernia Post-Operative Diagnosis: same Surgery/Procedure Performed:: umbilical hernia repair Description of Surgical Findings:: umbilical fascial defect - 2 cm veterinary laboratory technician: Harini Birmingham Type of Anesthesia:: General Anesthesiologist: Garett Victor Specimen's removed: none Estimated Blood Loss (mL): minimal Fluids Replaced: 600 ml RL Description of Procedure: After informed consent was obtained, the patient was brought to the Operating Room. Appropriate time out protocol was followed. She was then placed in the supine position. The patient was then placed under anesthesia. The abdomen was then prepped with a sterile surgical skin preparation. Sterile surgical drapes were placed. This skin and subcutaneous tissues were then widely infiltrated with the local anesthetic. A skin incision was then made with a 15 blade scalpel over the hernia site in a transverse oblique fashion inferior to the umbilical dimple. It was carried down to the subcutaneous tissues using sharp dissection. Any hemorrhage was adequately controlled with electrocautery. Blunt dissection was done to separate the subcutaneous tissues from the umbilical hernia sac. The sac once freed of the subcutaneous tissues was then freed from the undersurface of the dermis of the umbilical skin. The sac was then freed up from the fascial surface. The fascial defect was then properly outlined. The sac was from the fascial opening. The sac was opened and there were no incarcerated contents within it. The contents were reduced into the intraabdominal cavity. The fascia was then cleared from subcutaneous fatty tissues. The fascial defect was then closed transversely with interrupted #1 PDS suture. The subdermis was reapproximated with interrupted 3-0 vicryl sutures. The skin incision was reapproximated with a running 4-0 Monocryl suture. Cavilon and steristrips were placed to reinforce the skin closure and a sterile opsite dressing was applied. The patient was brought from to the Recovery Room in stable condition. - Complications none noted - Admit VTE Documentation VTE Present on Admission: Yes VTE Mechan Device Prophylaxis: SCD's
[2020-03-01 10:32] VITALS: BP 107/73; BP 112/79; PULSE 101; RESP 18; TEMP 36.3; O2SAT 94
[2020-03-01 10:45] VITALS: BP 107/75; BP 112/79; PULSE 100; RESP 18; O2SAT 98
[2020-03-01 10:54] VITALS: BP 111/78; BP 112/79; PULSE 99; RESP 18; TEMP 36.4; O2SAT 98
[2020-03-01 12:00] VITALS: BP 106/58; BP 112/79; PULSE 102; RESP 16; TEMP 36.6; O2SAT 100
[2020-03-01 13:30] VITALS: BP 111/76; BP 112/79; PULSE 95; RESP 16; TEMP 37.1; O2SAT 100
== END 2020-03-01 13:30 | disposition home or self-care (01) ==
LOC: SDC 07:56 → AC 07:57
PROVIDERS: Anesthesiology; Referring Provider Surgery; Visit Provider Surgery
PROC: (CPT 49585; principal; 2020-03-01 09:10)
DX: K42.9 Umbilical hernia without obstruction or gangrene (principal); F32.9 Major depressive disorder, single episode, unspecified; Z82.49 Family history of ischemic heart disease and other diseases of the circulatory system; Z91.040 Latex allergy status; Z80.3 Family history of malignant neoplasm of breast; M51.26 Other intervertebral disc displacement, lumbar region
CPT/HCPCS: 00830; 49585; 81025; 87426; C9803; J7120; J2405

== ENCOUNTER 2021-02-20 17:56 | Emergency (ER) | payer BC, SELFPAY ==
[2021-02-20 17:57] VITALS: BP 122/78; PULSE 110; RESP 18; TEMP 36.9; O2SAT 100; BMI 23.6
[2021-02-20 19:04] VITALS: O2SAT 100
[2021-02-20 19:11] VITALS: PULSE 105; O2SAT 100
--- NOTE | 2021-02-20 21:18 | EDS_ITS ---
HPI HPI - URI History of Present Illness Chief Complaint: Cough Narrative Narrative: 26-year-old female currently 15 weeks presenting for evaluation of bilateral rib pain. She states she had a cough for a couple of days. She does not feel specifically unwell it feels like a minor cold. She not had a fever and she is not short of breath. She was diagnosed with COVID-19 today and since she is her [employer] sent her to the emergency room for an evaluation. No history of DVT/PE. Specifically she has not had any during her pregnancies before. She does not have any pleuritic chest pain. She denies any cardiac history of significance. ROS ROS ED Constitutional Constitutional ED: Denies chills or fever(s) Eyes Eyes: Denies blurry vision or change in vision ENT ENT ED: Reports rhinorrhea; Denies sore throat Cardiovascular Cardiovascular: Denies chest pain or palpitations Respiratory/Chest Respiratory/Chest: Reports cough; Denies dyspnea Gastrointestinal Gastrointestinal: Denies abdominal pain, nausea or vomiting Genitourinary Genitourinary ED: Denies dysuria or hematuria Musculoskeletal Musculoskeletal: Denies arthralgias or myalgias Integumentary Denies abscess or rash Neurologic Neurologic: Denies headache(s) or paresthesias PFSH PFS Medical History COVID Home Medications Reliv 1 dose PO DAILY 02/29/20 [History Last Taken Unknown] Allergy/AdvReac Type Severity Reaction Status Date / Time latex Allergy Rash Verified 02/20/21 18:00 Social History Smoking Status: Never smoker EXAM Physical Exam Const Vital Signs: 02/20/21 17:57 02/20/21 19:04 02/20/21 19:11 Temperature 98.4 F Temperature Source Temporal Pulse Rate 110 H 105 H Respiratory Rate 18 Respiratory Effort Non-Labored Respiratory Depth Normal Respiratory Pattern Normal Blood Pressure 122/78 H Blood Pressure Mean 92 Pulse Ox 100 100 Oxygen Delivery Method Room Air Room Air Positive well nourished General Appearance ED: NAD; Negative for pallor HEENT normocephalic and atraumatic Eyes PERRL and EOMs intact bilaterally Neck supple and no meningeal signs Resp normal respiratory effort and clear to auscultation bilaterally Cardio Cardio Narrative: Mild tenderness to palpation of the bilateral ribs laterally. No crepitance or deformity. Equal symmetric breath sounds and chest wall rise. No wheezing, rhonchi or rales. Extremity normal to inspection; Negative for full ROM Neuro oriented x3 Sensorium / Orientation: alert Psych mental status grossly normal Skin General Skin Exam: Negative for jaundice or pallor MDM MDM MDM Narrative Medical decision making narrative: Patient presents with mild bilateral rib pain. She states she does feel like she has a cold but she did test positive for COVID-19. No history of DVT/PE during other pregnancies and no other history of DVT/PE. Patient does not have any cardiac history. She is not complaining of chest pressure or shortness of breath. This does not sound cardiac in nature nor does it sound like a pulmonary embolism. This was discussed with the patient at the bedside and we discussed risk benefits of radiation as she is 15 weeks . She states that she would not have, if not encouraged to do so by her [employer]. She feels otherwise well. She states that although she is a little tachycardic she has been like this with every . This does not abnormal for her. Her pulse ox is 100%. Respirate is 18. Temperature is 98.4. Blood pressure 122/78. I discussed at length return precautions. She is amenable to discharge home at this time without imaging or work-up. Impression: 1. COVID-19 2. Rib pain Discharge Plan Triage Chief Complaint: Cough ED Provider: Johan Dickerson Dx/Rx/DC Orders Instructions: Coronavirus Disease 2019 (COVID-19): Caring for Yourself or Others Prescriptions: No Action Reliv 1 dose PO DAILY RF: 0 Primary Care Provider: Care Physician,No Primary Referrals: Care Physician,No Primary [Primary Care Provider] - Disposition Disposition: Home, Self Care Discharge Date/Time: 02/20/21 19:19
== END 2021-02-20 19:19 | disposition home or self-care (01) ==
LOC: ED 19:16
PROVIDERS: Emergency Provider Student in an Organized Health Care Education/Training Program
DX: O98.512 Other viral diseases complicating pregnancy, second trimester (principal); U07.1 COVID-19; R07.81 Pleurodynia; Z3A.15 15 weeks gestation of pregnancy
CPT/HCPCS: 99282

== ENCOUNTER 2021-08-07 23:52 | Outpatient (CLI) | payer BC, SELFPAY ==
[2021-08-08 00:15] VITALS: BP 115/72; PULSE 100; TEMP 37.1
[2021-08-08 00:21] VITALS: BMI 27.8
[2021-08-08 00:22] VITALS: PULSE 95; O2SAT 97
[2021-08-08 01:00] LABS: ROM Internal Control Test YES-OK TO RESULT pt. (Internal QC); ROM Patient Test Negative (Negative)
--- NOTE | 2021-08-08 07:21 | OB.TRI.NOTE ---
HPI - General HPI Narrative CHAYA JHA, is a 26 F at 39.2 who presents to triage with contractions. Denies any loss of fluid or vaginal bleeding. Maternal Data Information TOÑO Calculator Estimated Delivery Date Method Current WG Current Estimate 08/13/21 Manual 39w 2d PFSH PFSH Medical History COVID Home Medications Reliv 1 dose PO DAILY 02/29/20 [History Last Taken 08/07/21 20:00] doxylamine succinate [Unisom (doxylamine)] 25 mg PO QHS PRN 08/08/21 [History Last Taken 08/07/21 20:00] magnesium citrate 100 mg PO BID 08/08/21 [History Last Taken 08/07/21 20:00] vitamin B6-vitamin E-magnesium 1 tab PO DAILY 08/08/21 [History Last Taken 08/07/21 20:00] Allergy/AdvReac Type Severity Reaction Status Date / Time latex Allergy Rash Verified 08/08/21 00:20 Social History Smoking Status: Never smoker History Elective abortions Hx Para 1 Spontaneous abortions Hx # Term Pregnancies Ectopic pregnancies Hx # Pregnancies Multiple births # of living children ROS Eyes Eyes: Denies blurry vision Cardiovascular Cardiovascular: Reports none; Denies chest pain at rest, chest pain with activity or dizziness Respiratory/Chest Respiratory/Chest: Denies cough or dyspnea Gastrointestinal Gastrointestinal: Reports none and other; Denies diarrhea or vomiting Genitourinary Genitourinary: Denies dysuria Musculoskeletal Musculoskeletal: Reports none Integumentary Integumentary: Reports none; Denies rash Neurologic Neurologic: Denies dizziness, headache(s) or other visual disturbances Psychiatric Psychiatric: Reports none Physical Exam Const alert and no apparent distress General Appearance: cooperative Orientation / Consciousness: awake Exam Limitations: no limitations HEENT normocephalic Eyes General Eye: normal appearance of both eyes Neck full ROM Chest inspection of chest normal Resp normal respiratory effort and normal air movement Effort and Inspection: symmetric chest movement Auscultation: clear to auscultation bilaterally Cardio regular rate GI soft to palpation, non-tender and non-distended Inspection: and other Back/Spine normal ROM Extremity full ROM, normal capillary refill and no calf tenderness Skin no rashes or lesions noted Neuro oriented x3 and CN's II-XII intact bilaterally Psych mental status grossly normal NST FHR Rate Baby A Baseline: 130 Variability:: Moderate Accelerations:: 15 x 15 Decelerations:: None NST Reactive:: Yes FHR Category:: Category I Uterine Activity:: Irregular Assessment & Plan (1) 39 weeks gestation of : (2) Uterine contractions: PLAN: CE- unchanged after extended monitoring Cat. 1 tracing, NST reactive Patient reports a decrease in contractions since arrival D/C home with follow up in office Dr. Fernandes notified
== END 2021-08-08 02:30 | disposition home or self-care (01) ==
LOC: WPOUT 08-08 → WP 08-08 00:02
PROVIDERS: Visit Provider Advanced Practice Midwife
DX: O47.1 False labor at or after 37 completed weeks of gestation (principal); O09.10 Supervision of pregnancy with history of ectopic pregnancy, unspecified trimester; Z3A.39 39 weeks gestation of pregnancy; Z86.16 Personal history of COVID-19
CPT/HCPCS: 59025; 59050; 84112; 99218; G0378

== ENCOUNTER 2021-08-08 15:00 | Inpatient (IN) | payer BC, SELFPAY ==
[2021-08-08] VITALS (18 sets, daily range): BP systolic 107–132; BP diastolic 57–80; PULSE 78–105; RESP 16; TEMP 36.8–37.2; O2SAT 97–100; BMI 27.8
[2021-08-08 15:43] LABS: Absolute Lymphocyte Count 1.75 X10^3/uL (0.83-4.51); Absolute Neutrophil Count 4.8 X10^3/uL (2.0-7.7); Basophil# 0.01 X10^3/uL; Basophil% 0.1 % (0-1); Eosinophil# 0.08 X10^3/uL; Eosinophils% 1.1 % (0-5); Hematocrit 34.4 % (37-47); Hemoglobin 11.8 g/dL (12.0-15.0); Lymphocyte # 1.75 X10^3/ul (0.83-4.51); Lymphocyte % 24.7 % (19-41); Mean Corp Hgb Conc 34.3 g/dL (32-36); Mean Corpuscular Hgb 30.9 pg (27.0-32.0); Mean Corpuscular Volume 90.1 fL (81-99); Mean Platelet Vol. 10.6 fl (6.2-12.0); Monocyte# 0.45 X10^3/uL; Monocyte% 6.3 % (0-10); NRBC Flagged by Analyzer 0 % (0-5); Neutrophil # 4.78 X10^3/uL (2.7-7.7); Neutrophil % 67.5 % (47-70); Platelet Count 193 K/mm3 (150-450); RBC Distribution Width CV 13.7 % (11.6-14.6); RBC Distribution Width SD 44.5 fl (35.1-43.9); Red Blood Count 3.82 M/mm3 (4.2-5.4); White Blood Count 7.1 K/mm3 (4.4-11.0)
--- NOTE | 2021-08-08 15:44 | NURSING ---
Infant with 2 vessel cord. Will check with office if okay for IA before initiating.
[2021-08-08] MEDS: Oxytocin 30 units/NS 500 ml 30 UNITS/500 ML IV.SOLN 334 UNITS IV (18:40)
--- NOTE | 2021-08-08 19:06 | PCM.HP.OB ---
HPI - General General Date of Admission: 08/08/21 HPI Narrative CHAYA JHA, is a 26 F who presents at 39w2d in active labor. Presented to office visit with bloody discharge and cervical exam was 4-5cm and sent to labor and delivery. complicated by single umbilical artery. Maternal Data Information TOÑO Calculator Estimated Delivery Date Method Current WG Current Estimate 08/13/21 Manual 39w 2d PFSH PFSH Medical History COVID Home Medications Reliv 1 dose PO DAILY 02/29/20 [History Last Taken 08/08/21 11:00] doxylamine succinate [Unisom (doxylamine)] 25 mg PO QHS PRN 08/08/21 [History Last Taken 08/07/21 20:00] magnesium citrate 100 mg PO BID 08/08/21 [History Last Taken 08/08/21 11:00] vitamin B6-vitamin E-magnesium 1 tab PO DAILY 08/08/21 [History Last Taken 08/08/21 11:00] Allergy/AdvReac Type Severity Reaction Status Date / Time latex Allergy Rash Verified 08/08/21 15:45 Family History no significant family his Surgical History no surgical history Social History Smoking Status: Former smoker History Elective abortions Hx Para 2 Spontaneous abortions Hx # Term Pregnancies Ectopic pregnancies Hx # Pregnancies Multiple births # of living children NST FHR Rate Baby A Baseline: 135 Variability:: Moderate Accelerations:: 15 x 15 Decelerations:: Variable FHR Category:: Category II Uterine Activity:: every 4 minutes ROS Constitutional Constitutional: Reports systems reviewed and no addt'l complaints, except as documented; Denies headache(s) Eyes Eyes: Denies acute decrease in peripheral vision, blurry vision or change in vision ENT HEENT: Reports systems reviewed and no addt'l complaints, except as documented Cardiovascular Cardiovascular: Denies chest pain or dizziness Respiratory/Chest Respiratory/Chest: Denies cough, dyspnea, dyspnea on exertion, shortness of breath at rest or shortness of breath with exertion Gastrointestinal Gastrointestinal: Denies abdominal pain, diarrhea, nausea or vomiting Genitourinary Genitourinary: Denies abdominal discomfort or movement Musculoskeletal Musculoskeletal: Denies limited range of motion Integumentary Integumentary: Reports systems reviewed and no addt'l complaints, except as documented Neurologic Neurologic: Reports systems reviewed and no addt'l complaints, except as documented Psychiatric Psychiatric: Reports systems reviewed and no addt'l complaints, except as documented Endocrine Endocrinology: Reports systems reviewed and no addt'l complaints, except as documented Hematologic/Lymphatic Hematologic/Lymphatic: Reports systems reviewed and no addt'l complaints, except as documented Allergic/Immunologic Allergic/Immunologic: Reports systems reviewed and no addt'l complaints, except as documented Vital Signs Vital Signs Vital Signs: 08/08/21 15:27 08/08/21 15:28 08/08/21 15:30 Temperature 98.7 F Temperature Source Temporal Pulse Rate 87 95 Blood Pressure 116/80 BP Systolic 116 BP Diastolic 80 Pulse Ox 98 97 08/08/21 16:34 08/08/21 16:35 08/08/21 19:04 Temperature 98.9 F Temperature Source Temporal Pulse Rate 99 105 H 96 Blood Pressure 130/79 H 107/72 BP Systolic 130 107 BP Diastolic 79 72 Pulse Ox 99 100 Weight Weight: 172 lb 2.896 oz Body Mass Index (BMI) 27.8 Physical Exam Const alert and oriented x3 General Appearance: cooperative Orientation / Consciousness: awake, oriented to person, oriented to place and oriented to time Exam Limitations: no limitations HEENT normocephalic Head and Scalp: normal to inspection, normocephalic and atraumatic Face and Sinus: normal facial exam Eyes General Eye: normal appearance of both eyes Neck full ROM Chest Chest: symmetrical chest wall rise Resp normal respiratory effort appearance of the vagina normal Bladder / Kidney Exam: no CVA tenderness Manual OB Exam: estimated gestational size appropriate, presentation cephalic, dilated 9cm, effaced 90% and station 0 Amniotic Fluid: clear amniotic fluid Back/Spine normal ROM Extremity normal to inspection and full ROM Skin no rashes or lesions noted Neuro oriented x3, CN's II-XII intact bilaterally and moves all extremities Sensorium / Orientation: awake, alert and oriented to person Labs Labs Labs: Blood Type O POSITIVE Antibody Screen NEGATIVE Hct 34.4 % (37-47) L Hgb 11.8 g/dL (12.0-15.0) L Rhogam given: No GBS negative RPR nonreactive Rubella Immune HBsAG negative HepC negative HIV negative GC/CT negative Assessment & Plan (1) 39 weeks gestation of : (2) Uterine contractions: (3) History of depression: (4) Active labor at term: (5) History of ulcerative colitis: (6) History of atony of uterus: (7) Single umbilical artery: PLAN: 1) Admit to labor and delivery 2) Routine labs 3) Continuous EFM, category 2 FHT 4) COVID test negative 5) Planning unmedicated 6) GBS negative 7) collaborative physician and notified of patient status.
--- NOTE | 2021-08-08 19:45 | EX.PCM.OBRPT ---
Assessment & Plan (1) Vaginal delivery: (2) First degree perineal laceration: Maternal Data Information TOÑO Calculator Estimated Delivery Date Method Current WG Current Estimate 08/13/21 Manual 39w 2d Vaginal Delivery Maternal Presentation Maternal Presentation: Active Labor Operative Information Date of Procedure: 08/08/21 Pre-Operative Diagnosis: active labor Post-Operative Diagnosis: Surgery / Procedure Performed: Spontaneous Vaginal Delivery Type of Anesthesia: Local with 1% Lidocaine Estimated Blood Loss: 500 ml Time of Delivery: 18:34 Findings Description of Procedure: Progressed to complete with urge to push, unmedicated. of viable female infant over first degree perineal laceration. head delivered JAN with body forthcoming. CANx1, delivered through. Infant placed on maternal abdomen, strong cry. Mouth and nares suctioned for secretions. Pitocin started for active 3rd stage management. Cord clamped and cut after pulsations ceased and delayed cord clamping. Cut by FOB. Placenta delivered with maternal effort, 2 vessel cord, intact via slava. Perineum inspected and revealed first degree perineal laceration, repaired with 3.0 vicryl with lidocaine. Vaginal sweep completed, sponge and instrument count correct. Fundus firm and hemostasis achieved, 500ml. Mom and baby stable, planning to breastfeed, family bonding well. collaborative physician and notified of patient status. Presentation: Vertex and JAN Amniotic Membrane Rupture Type: Artificial Amniotic Fluid Description: Clear Placental Delivery Description: Spontaneous Placenta Disposition: [facility] Cord Vessel Description: 2 Vessels Cord Entanglement: Around neck x 1, loose Nuchal Cord Compression: Without compression A Gender: Female (1 minute): 8 (5 minute): 9 Delayed Cord Clamping: Yes Post Vaginal Delivery Medications Given After Delivery: IV Pitocin Episiotomy Description: None Laceration: Perineal Extension/lac and 1st degree Complication Complications: None
[2021-08-09 04:48] VITALS: BP 115/56; PULSE 93; PULSE 94; RESP 16; TEMP 36.5; O2SAT 98
[2021-08-09 05:08] LABS: Hematocrit 32.6 % (37-47); Hemoglobin 10.7 g/dL (12.0-15.0); Mean Corp Hgb Conc 32.8 g/dL (32-36); Mean Corpuscular Hgb 30.3 pg (27.0-32.0); Mean Corpuscular Volume 92.4 fL (81-99); Mean Platelet Vol. 10.2 fl (6.2-12.0); Platelet Count 182 K/mm3 (150-450); RBC Distribution Width CV 13.7 % (11.6-14.6); Red Blood Count 3.53 M/mm3 (4.2-5.4); White Blood Count 10.6 K/mm3 (4.4-11.0)
--- NOTE | 2021-08-09 07:27 | PN.OBGYN_ITS ---
Subjective Subjective Doing well per patient and nursing staff. Ambulating and taking PO without difficulty. Voiding and passing flatus. Pain controlled. , services for assistance. Denies headache, visual changes, chest pain, shortness of breath, leg pain or increased bleeding. Lochia normal. Objective Data Objective Data Vital Signs: Vital Signs Temp Pulse Resp BP Pulse Ox 97.7 F L 94 16 115/56 L 98 08/09/21 04:48 08/09/21 04:48 08/09/21 04:48 08/09/21 04:48 08/09/21 04:48 Oxygen Delivery Method Room Air Weight: 172 lb 2.896 oz Body Mass Index (BMI) 27.8 Intake & Output: Intake and Output for Last 24 Hours 08/07/21 08/08/21 08/09/21 23:59 23:59 23:59 Output Total 500 / 500 500 / 500 Balance -500 / -500 -500 / -500 Lab / Micro Data Result Diagrams: 08/09/21 04:55 Labs: Laboratory Results - last 24 hr 08/08/21 15:20: WBC 7.1, RBC 3.82 L, Hgb 11.8 L, Hct 34.4 L, MCV 90.1, MCH 30.9, MCHC 34.3, RDW Std Deviation 44.5 H, RDW Coeff of Siri 13.7, Plt Count 193, MPV 10.6, Immature Gran % (Auto) 0.300, Neut % (Auto) 67.5, Lymph % (Auto) 24.7, [place] % (Auto) 6.3, Eos % (Auto) 1.1, Baso % (Auto) 0.1, Absolute Neuts (auto) 4.8, Absolute Lymphs (auto) 1.75, Nucleated RBC % 0 08/08/21 15:20: Blood Type O POSITIVE, Antibody Screen NEGATIVE 08/09/21 04:55: WBC 10.6, RBC 3.53 L, Hgb 10.7 L, Hct 32.6 L, MCV 92.4, MCH 30.3, MCHC 32.8, RDW Std Deviation 46.0 H, RDW Coeff of Siri 13.7, Plt Count 182, MPV 10.2 Micro: Microbiology 08/08/21 15:32 Nasal Secretion SARS-CoV-2 Antigen (Rapid) - Final ROS Constitutional Constitutional: Reports systems reviewed and no addt'l complaints, except as documented; Denies headache(s) Eyes Eyes: Denies acute decrease in peripheral vision, blurry vision or change in vision ENT HEENT: Reports systems reviewed and no addt'l complaints, except as documented Cardiovascular Cardiovascular: Denies chest pain or dizziness Respiratory/Chest Respiratory/Chest: Denies cough, dyspnea, dyspnea on exertion, shortness of breath at rest or shortness of breath with exertion Gastrointestinal Gastrointestinal: Denies abdominal pain, diarrhea, nausea or vomiting Genitourinary Genitourinary: Denies abdominal discomfort Musculoskeletal Musculoskeletal: Denies limited range of motion Integumentary Integumentary: Reports systems reviewed and no addt'l complaints, except as documented Neurologic Neurologic: Reports systems reviewed and no addt'l complaints, except as documented Psychiatric Psychiatric: Reports systems reviewed and no addt'l complaints, except as documented Endocrine Endocrinology: Reports systems reviewed and no addt'l complaints, except as documented Hematologic/Lymphatic Hematologic/Lymphatic: Reports systems reviewed and no addt'l complaints, except as documented Allergic/Immunologic Allergic/Immunologic: Reports systems reviewed and no addt'l complaints, except as documented Physical Exam Const alert and oriented x3 General Appearance: cooperative Orientation / Consciousness: awake, oriented to person, oriented to place and oriented to time Exam Limitations: no limitations HEENT normocephalic Head and Scalp: normal to inspection, normocephalic and atraumatic Face and Sinus: normal facial exam Eyes General Eye: normal appearance of both eyes Neck full ROM Chest Chest: symmetrical chest wall rise Resp normal respiratory effort and normal air movement Auscultation: clear to auscultation bilaterally Cardio regular rate, regular rhythm, S1 normal heart sound, S2 normal heart sound, no murmurs, no rub, no gallops and no clicks GI normal to inspection, nondistended, normoactive bowel sounds and non-tender appearance of the vagina normal Bladder / Kidney Exam: no CVA tenderness Back/Spine normal ROM Extremity normal to inspection and full ROM Skin no rashes or lesions noted Neuro oriented x3, CN's II-XII intact bilaterally and moves all extremities Sensorium / Orientation: awake, alert and oriented to person Motor Exam: clonus absent Deep Tendon Reflexes: Rt Patellar (L4): 2+ and Lt Patellar (L4): 2+ Assessment & Plan (1) First degree perineal laceration: (2) Vaginal delivery: (3) History of depression: PLAN: 1) Routine PP care 2) Vitals stable 3) H&H stable, asymptomatic 4) 5) Follow up in 2 weeks and 6 weeks 6) D/C home
--- NOTE | 2021-08-09 07:31 | PCM.DC.SUM ---
Providers Date of Admission: 08/08/21 Primary Care Physician: No Primary Care Phys Reason For Visit: VAG Diagnosis Discharge Diagnosis (1) First degree perineal laceration: Status: Acute Code(s): O70.0 - First degree perineal laceration during delivery (2) Vaginal delivery: Status: Acute Code(s): O80 - Encounter for full-term uncomplicated delivery (3) History of depression: Status: Acute Code(s): Z86.59 - Personal history of other mental and behavioral disorders Medications at Discharge Home Medications Reliv 1 dose PO DAILY 02/29/20 magnesium citrate 100 mg PO BID 08/08/21 acetaminophen 1,000 mg PO Q6H PRN PRN #0 tab 08/09/21 ibuprofen 600 mg PO Q6H PRN PRN #0 tab 08/09/21 Weight / BMI Weight Weight: 172 lb 2.896 oz Body Mass Index (BMI) 27.8 ABG / Lab / Microbiology Data Result Diagrams: 08/09/21 04:55 Laboratory: Laboratory Results - last 24 hr 08/08/21 15:20: WBC 7.1, RBC 3.82 L, Hgb 11.8 L, Hct 34.4 L, MCV 90.1, MCH 30.9, MCHC 34.3, RDW Std Deviation 44.5 H, RDW Coeff of Siri 13.7, Plt Count 193, MPV 10.6, Immature Gran % (Auto) 0.300, Neut % (Auto) 67.5, Lymph % (Auto) 24.7, Mercer % (Auto) 6.3, Eos % (Auto) 1.1, Baso % (Auto) 0.1, Absolute Neuts (auto) 4.8, Absolute Lymphs (auto) 1.75, Nucleated RBC % 0 08/08/21 15:20: Blood Type O POSITIVE, Antibody Screen NEGATIVE 08/09/21 04:55: WBC 10.6, RBC 3.53 L, Hgb 10.7 L, Hct 32.6 L, MCV 92.4, MCH 30.3, MCHC 32.8, RDW Std Deviation 46.0 H, RDW Coeff of Siri 13.7, Plt Count 182, MPV 10.2 Microbiology: Microbiology 08/08/21 15:32 Nasal Secretion SARS-CoV-2 Antigen (Rapid) - Final Meaningful Use Info Meaningful Use Diagnoses (Choose all that apply): None applicable Discharge Plan Admission Admit Date/Time: 08/08/21 15:00 Primary Reason for Your Visit: vaginal delivery with first degree perineal laceration Attending Provider: Elizabeth Clark Primary Care Provider: Care Physician,Ramandeep Primary Discharge Orders/Prescriptions Prescriptions: New acetaminophen 500 mg Tablet 1,000 mg PO Q6H PRN PRN (Reason: Pain 1-10 Or Fever) Qty: 0 RF: 0 ibuprofen 600 mg Tablet 600 mg PO Q6H PRN PRN (Reason: Pain Score 1-3) Qty: 0 RF: 0 Continued Reliv 1 dose PO DAILY RF: 0 magnesium citrate 100 mg Capsule 100 mg PO BID RF: 0 Discontinued Unisom (doxylamine) 25 mg Tablet 25 mg PO QHS PRN (Reason: Nausea) RF: 0 vitamin B6-vitamin E-magnesium Tablet 1 tab PO DAILY RF: 0 Referrals / Follow Up: Care Physician,No Primary [Primary Care Provider] - Disposition Disposition (needs filled in before D/C Order can be placed): Home, Self Care
[2021-08-09 07:45] VITALS: BP 116/61; PULSE 92; RESP 17; TEMP 36.4; O2SAT 98
[2021-08-09 07:47] VITALS: BP 116/61; PULSE 96
[2021-08-09 12:23] VITALS: BP 115/67; PULSE 91; RESP 16; TEMP 36.7
[2021-08-09 16:45] VITALS: BP 111/55; PULSE 86; RESP 16; TEMP 36.5
[2021-08-09 16:46] VITALS: BP 111/55; PULSE 88; O2SAT 98
[2021-08-09] MEDS: Acetaminophen 500 MG Tablet 1000 MG PO (16:50)
== END 2021-08-09 20:05 | disposition home or self-care (01) | DRG 807 ==
PROVIDERS: Obstetrics & Gynecology; Admitting Provider Advanced Practice Midwife; Visit Provider Advanced Practice Midwife
DX: O70.0 First degree perineal laceration during delivery (principal); Z37.0 Single live birth; O26.23 Pregnancy care for patient with recurrent pregnancy loss, third trimester; O26.893 Other specified pregnancy related conditions, third trimester; Z87.19 Personal history of other diseases of the digestive system; Z86.59 Personal history of other mental and behavioral disorders; Z3A.39 39 weeks gestation of pregnancy; Z86.16 Personal history of COVID-19
CPT/HCPCS: 59025; 59050; 85025; 85027; 86850; 86900; 86901; 87426; 99218; G0378